=== PATIENT | female | born 1990 | race Caucasian/White ===

== ENCOUNTER 2017-08-11 03:48 | Emergency (ER) | payer OTHER ==
[2017-08-11] MEDS ORDERED: NORMAL SALINE 250 ML IV PRN (04:11)
[2017-08-11] MEDS ORDERED: MISOPROSTOL 0.2 MG TABLET PR ONE (04:13)
[2017-08-11 04:23] LABS: ABSOLUTE BASOPHILS # (AUTO) 0.1 10^3/uL (0.0-0.2); ABSOLUTE EOSINOPHILS # (AUTO) 0.7 10^3/uL (0.0-0.6); ABSOLUTE LYMPHOCYTES (AUTO) 3.5 10^3/uL (0.5-4.7); ABSOLUTE MONOCYTES (AUTO) 0.7 10^3/uL (0.1-1.4); ABSOLUTE NEUT (AUTO) 7.5 10^3/uL (1.7-8.2); BASOPHILS % (AUTO) 0.6 % (0-2); EOSINOPHILS % (AUTO) 5.3 % (0-6); HEMATOCRIT 42.7 % (36.0-47.0); HEMOGLOBIN 14.5 g/dL (12.0-15.5); LYMPHOCYTES % (AUTO) 28.1 % (13-45); MEAN CORPUSCULAR HGB CONC 33.9 g/dL (32.0-36.0); MEAN CORPUSCULAR VOLUME 86 fl (80-97); MONOCYTES % (AUTO) 5.8 % (3-13); PLATELET COUNT 554 10^3/uL (150-450); RED BLOOD COUNT 4.98 10^6/uL (3.72-5.28); RED CELL DISTRIBUTION WIDTH 12.8 % (11.5-14.0); SEGMENTED NEUTROPHILS % (AUTO) 60.2 % (42-78); TOTAL CELLS COUNTED % (AUTO) 100 %; WHITE BLOOD COUNT 12.5 10^3/uL (4.0-10.5)
[2017-08-11 04:27] LABS: ACETAMINOPHEN 38 ug/mL (10-30); ALANINE AMINOTRANSFERASE 56 U/L (9-52); ALBUMIN 4.7 g/dL (3.5-5.0); ALCOHOL 115 mg/dL (NONE DETECTED); ALKALINE PHOSPHATASE 88 U/L (38-126); ANION GAP 16 (5-19); ASPARTATE AMINO TRANSFERASE 47 U/L (14-36); BILIRUBIN,DIRECT 0.1 mg/dL (0.0-0.4); BILIRUBIN,TOTAL 0.2 mg/dL (0.2-1.3); BLOOD UREA NITROGEN 11 mg/dL (7-20); CALCIUM 9.9 mg/dL (8.4-10.2); CARBON DIOXIDE 22 mmol/L (22-30); CHLORIDE 103 mmol/L (98-107); GLUCOSE 144 mg/dL (75-110); POTASSIUM 4.5 mmol/L (3.6-5.0); SODIUM 141.3 mmol/L (137-145); TOTAL PROTEIN 7.4 g/dL (6.3-8.2)
[2017-08-11 04:28] LABS: SALICYLATE < 1.0 mg/dL (2.0-20.0)
--- NOTE | 2017-08-11 04:44 | ER Document Report ---
ED Psych Disorder / Suicide - General Mode of Arrival: Medic Information source: Patient, Transfer Record TRAVEL OUTSIDE OF THE [place] IN LAST 30 DAYS: No - HPI Patient complains to provider of: Overdose, Suicidal attempt Onset: Just prior to arrival Pain Level: Denies Suicide Risk Factors: Depressed, Lack of social support, No spouse, Prior suicide attempt, Other mental health dx. Suicide Attempt Method: Overdose Overdose of: Acetominophen, Alcohol, Anticholinergic Normal mood: No Associated symptoms: Depressed Similar symptoms previously: Yes Recently seen / treated by doctor: No <NINA ORTEGA - Last Filed: 08/11/17 07:52> <LILY COLUNGA - Last Filed: 08/11/17 13:16> - General Chief Complaint: Suicidal Ideation Stated Complaint: POSSIBLE OVERDOSE Time Seen by Provider: 08/11/17 04:02 Notes: Patient presents stating that she had a really bad day and she attempted to reach out to 10 people, none of who responded to her. Patient states that she feels very alone and does have typical financial stress. Patient states that she drank half a liter of [place] rum and then took Nucynta 50 mg 1 tablet, Martin 5/325 6-8 tablets,10 temazepam 100 mg tabs, 200 mg of Benadryl, Tylenol 10 tablets, Zofran 7 tabs of the 4 mg dose. Patient states she took all of this at 230 this morning. Patient states that she has a history of mental illness and treatment resistant depression. Patient also reports borderline personality disorder. Patient states she has had inpatient admissions to psychiatric facilities in the past. (NINA ORTEGA) - Related Data Allergies/Adverse Reactions: adhesive tape Allergy (Verified 08/11/17 08:37) morphine Allergy (Verified 08/11/17 08:37) Sulfa (Sulfonamide Antibiotics) Allergy (Verified 08/11/17 08:37) Past Medical History - General Information source: Patient - Social History Smoking Status: Current Every Day Smoker Frequency of alcohol use: Occasional Drug Abuse: None Occupation: None Lives with: Other - Daughter Family History: Reviewed & Not Pertinent Neurological Medical History: Reports: Hx Migraine Renal/ Medical History: Reports: Hx Ovarian Cysts Musculoskeltal Medical History: Reports Other - Ankylosing spondylosis, chronic hip and back pain Skin Medical History: Reports Hx Eczema Psychiatric Medical History: Reports: Hx Anxiety, Hx Borderline Personality Disorder, Hx Depression, Hx Post Traumatic Stress Disorder Past Surgical History: Reports: Hx Cholecystectomy, Hx Gynecologic Surgery - left fallopian tube removed - Immunizations Immunizations up to date: Yes Hx Diphtheria, Pertussis, Tetanus Vaccination: Yes <NINA ORTEGA - Last Filed: 08/11/17 07:52> Review of Systems - Review of Systems Constitutional: No symptoms reported. denies: Fever, Recent illness EENT: No symptoms reported Cardiovascular: No symptoms reported Respiratory: No symptoms reported Gastrointestinal: No symptoms reported. denies: Abdominal pain, Nausea, Vomiting Genitourinary: No symptoms reported Female Genitourinary: No symptoms reported Musculoskeletal: No symptoms reported Skin: No symptoms reported Hematologic/Lymphatic: No symptoms reported Neurological/Psychological: Suicidal ideation <SHANNON,KELLEANDRA - Last Filed: 08/11/17 07:52> Physical Exam - General General appearance: Appears well, Alert - HEENT Head: Normocephalic, Atraumatic Eyes: Normal Conjunctiva: Normal Nasal: Normal Mouth/Lips: Normal Mucous membranes: Normal Neck: Normal, Supple. No: Lymphadenopathy - Respiratory Respiratory status: No respiratory distress Chest status: Nontender Breath sounds: Normal. No: Rales, Rhonchi, Stridor, Wheezing Chest palpation: Normal - Cardiovascular Rhythm: Regular Heart sounds: S1 appreciated, S2 appreciated Murmur: No - Abdominal Inspection: Normal - Back Back: Tender - lumbar paraspinal tenderness - Extremities General upper extremity: Normal inspection, Normal ROM General lower extremity: Normal inspection, Normal ROM - Neurological Neuro grossly intact: Yes Orientation: AAOx4 Sreekanth Coma Scale Eye Opening: Spontaneous Sreekanth Coma Scale Verbal: Oriented [place] Coma Scale Motor: Obeys Commands [place] Coma Scale Total: 15 - Psychological Associated symptoms: Depressed - Skin Skin Temperature: Warm Skin Moisture: Dry Skin Color: Normal <SHANNON,KELSAVANAHAYDIN - Last Filed: 08/11/17 07:52> - Vital signs Vitals: Resp Pulse Ox 14 94 08/11/17 04:12 08/11/17 04:12 Course - Laboratory Result Diagrams: 08/11/17 03:30 08/11/17 03:30 <NINA ORTEGA - Last Filed: 08/11/17 07:52> - Laboratory Result Diagrams: 08/11/17 03:30 08/11/17 03:30 <LILY COLUNGA - Last Filed: 08/11/17 13:16> - Re-evaluation Re-evalutation: 08/11/17 04:41 Call placed to poison control, recommends monitoring patient for at least 6 hours. Does recommend repeating a acetaminophen level in 4 hours. This is watching for tachycardia, hypertension and agitation due to the Benadryl effects , advises monitoring for sedation after the Nucynta and Martin. Advises Narcan as needed and if Narcan is administered advised monitoring patient additional 4 hours post Narcan administration. 08/11/17 05:00 IVC hold paperwork completed and given to loan originator for notary. 08/11/17 06:00 pt hostile, refuses to change into gown. Dr Mccullough and security to bedside. Safe room initiated. 08/11/17 06:41 Patient yelling at staff. Patient with suicidal behavior and concern about elopement risk. Hard restraints ordered. 08/11/17 07:31 report and handoff given to Ke Kenney LOAN CLERK. Patient visibly more calm and is cooperative at this time, restraints removed. (NINA ORTEGA) - Vital Signs Vital signs: Temp Pulse Resp BP Pulse Ox 14 114/78 100 08/11/17 12:20 08/11/17 12:20 08/11/17 11:00 - Laboratory Laboratory results interpreted by me: 08/11/17 08/11/17 03:30 03:30 WBC 12.5 H Plt Count 554 H Absolute Eosinophils 0.7 H Glucose 144 H AST 47 H ALT 56 H Salicylates < 1.0 L Acetaminophen 38 H 08/11/17 07:54 Labs- Entire Visit 08/11/17 08/11/17 08/11/17 03:30 03:30 03:30 WBC 12.5 H RBC 4.98 Hgb 14.5 Hct 42.7 MCV 86 MCH 29.0 MCHC 33.9 RDW 12.8 Plt Count 554 H Seg Neutrophils % 60.2 Lymphocytes % 28.1 Monocytes % 5.8 Eosinophils % 5.3 Basophils % 0.6 Absolute Neutrophils 7.5 Absolute Lymphocytes 3.5 Absolute Monocytes 0.7 Absolute Eosinophils 0.7 H Absolute Basophils 0.1 Sodium 141.3 Potassium 4.5 Chloride 103 Carbon Dioxide 22 Anion Gap 16 BUN 11 Creatinine 0.69 Est GFR ( Amer) > 60 Est GFR (Non-Af Amer) > 60 Glucose 144 H Calcium 9.9 Total Bilirubin 0.2 Direct Bilirubin 0.1 Neonat Total Bilirubin Not Reportable Neonat Direct Bilirubin Not Reportable Neonat Indirect Bili Not Reportable AST 47 H ALT 56 H Alkaline Phosphatase 88 Total Protein 7.4 Albumin 4.7 Serum HCG, Qual NEGATIVE Urine Color Urine Appearance Urine pH Ur Specific [place] Urine Protein Urine Glucose (UA) Urine Ketones Urine Blood Urine Nitrite Urine Bilirubin Urine Urobilinogen Ur Leukocyte Esterase Urine WBC (Auto) Urine Bacteria (Auto) Squamous Epi Cells Auto Urine Mucus (Auto) Urine Ascorbic Acid Salicylates < 1.0 L Urine Opiates Screen Urine Methadone Screen Acetaminophen 38 H Ur Barbiturates Screen Ur Phencyclidine Scrn Ur Amphetamines Screen U Benzodiazepines Scrn Urine Cocaine Screen U Marijuana (THC) Screen Serum Alcohol 115 08/11/17 08/11/17 08/11/17 04:42 04:42 07:15 WBC RBC Hgb Hct MCV MCH MCHC RDW Plt Count Seg Neutrophils % Lymphocytes % Monocytes % Eosinophils % Basophils % Absolute Neutrophils Absolute Lymphocytes Absolute Monocytes Absolute Eosinophils Absolute Basophils Sodium Potassium Chloride Carbon Dioxide Anion Gap BUN Creatinine Est GFR ( Amer) Est GFR (Non-Af Amer) Glucose Calcium Total Bilirubin Direct Bilirubin Neonat Total Bilirubin Neonat Direct Bilirubin Neonat Indirect Bili AST ALT Alkaline Phosphatase Total Protein Albumin Serum HCG, Qual Urine Color COLORLESS Urine Appearance CLEAR Urine pH 6.0 Ur Specific [place] 1.002 Urine Protein NEGATIVE Urine Glucose (UA) NEGATIVE Urine Ketones NEGATIVE Urine Blood NEGATIVE Urine Nitrite NEGATIVE Urine Bilirubin NEGATIVE Urine Urobilinogen NEGATIVE Ur Leukocyte Esterase NEGATIVE Urine WBC (Auto) 0 Urine Bacteria (Auto) TRACE Squamous Epi Cells Auto <1 Urine Mucus (Auto) RARE Urine Ascorbic Acid NEGATIVE Salicylates Urine Opiates Screen UNCONFIRMED POSITIVE Urine Methadone Screen NEGATIVE Acetaminophen 10 Ur Barbiturates Screen NEGATIVE Ur Phencyclidine Scrn NEGATIVE Ur Amphetamines Screen NEGATIVE U Benzodiazepines Scrn NEGATIVE Urine Cocaine Screen NEGATIVE U Marijuana (THC) Screen NEGATIVE Serum Alcohol (NINA ORTEGA) Discharge <NINA ORTEGA - Last Filed: 08/11/17 07:52> <LILY COLUNGA - Last Filed: 08/11/17 13:16> - Discharge Clinical Impression: Borderline personality disorder, PTSD (post-traumatic stress disorder) Overdose Qualifiers: Encounter type: initial encounter Injury intent: intentional self-harm Qualified Code(s): T50.902A - Poisoning by unspecified drugs, medicaments and biological substances, intentional self-harm, initial encounter Depression Qualifiers: Depression Type: major depressive disorder Major depression recurrence: recurrent Active/Remission status: currently active Major depression episode severity: severe Psychotic features: without psychotic features Qualified Code(s ): F33.2 - Major depressive disorder, recurrent severe without psychotic features Condition: Stable Disposition: HOME, SELF-CARE Additional Instructions: DEPRESSION: Your evaluation reveals that you have mental depression. While symptoms may be vague, they often include disturbance of sleep, fatigue, loss of appetite , and general loss of interest in life. While depression may be a side effect of drugs, or a reaction to a major change in your life, many cases have no known cause. If depression is acute, and related to a major loss in your life, you can expect it to clear completely with time. If you have been depressed a long time , are prone to repeated bouts of depression or low mood, or have been thinking of suicide, get help. Depression can be treated with anti-depressant medication and counselling. Long-term depression will often take a few weeks to clear, even with appropriate medication. Follow-up care is important. SUICIDAL IDEATION: Suicidal ideation is a common medical term for thoughts about suicide, which may be as detailed as a formulated plan, without the suicidal act itself. Although most people who undergo suicidal ideation do not commit suicide, some go on to make suicide attempts. The range of suicidal ideation varies greatly from fleeting to detailed planning, role playing, and unsuccessful attempts. While thoughts about suicide are common, most people do not carry out serious actions to commit suicide. Based upon your evaluation and discussion with you, we do not believe you are currently at risk to act upon your thoughts of suicide. You have agreed to return to the Emergency Department, at any time , if you feel inclined to act upon your suicidal thoughts. FOLLOW-UP CARE: [facility]. You also have an appointment with [facility] on 08/22/2017. Mobile crisis will continue to follow her case and will assist in helping obtain all mental health services you need. If you experience worsening or a significant change in your symptoms, notify the physician immediately or return to the Emergency Department at any time for re-evaluation. Referrals: [facility] [Provider Group] - 08/14/17 3:00 pm [facility] [Outside] - 08/22/17 [facility] [Outside] - Follow up as needed
[2017-08-11 05:03] LABS: APPEARANCE,URINE CLEAR; BILIRUBIN,URINE NEGATIVE (NEGATIVE); COLOR,URINE COLORLESS; GLUCOSE, URINE NEGATIVE (NEGATIVE); KETONES,URINE NEGATIVE (NEGATIVE); LEUKOCYTE ESTERASE,URINE NEGATIVE (NEGATIVE); NITRITE,URINE NEGATIVE (NEGATIVE); PROTEIN,URINE NEGATIVE (NEGATIVE); URINE SPECIFIC GRAVITY 1.002; UROBILINOGEN,URINE NEGATIVE mg/dL (<2.0)
[2017-08-11 05:21] LABS: URINE AMPHETAMINES SCREEN NEGATIVE; URINE BARBITURATES SCREEN NEGATIVE; URINE BENZODIAZEPINES SCREEN NEGATIVE; URINE COCAINE SCREEN NEGATIVE; URINE MARIJUANA (THC) SCREEN NEGATIVE; URINE METHADONE SCREEN NEGATIVE; URINE PHENCYCLIDINE SCREEN NEGATIVE
--- NOTE | 2017-08-11 07:51 | EKG REPORT ---
SEVERITY:- NORMAL ECG - SINUS RHYTHM : Confirmed by: Ludwin Blackwood MD 11-Aug-2017 07:51:20
--- NOTE | 2017-08-11 09:06 | ER Document Report ---
Doctor's Note Notes: 08/11/17 10:18 Patient was seen during this morning psychiatric rounds along with behavioral health team. Patient came last night for evaluation voluntarily. Patient has history of depression and took medications stated above. Patient felt that her depression was getting worse and she did not have any support at that time. Patient had elevated liver enzymes as well as slightly elevated Tylenol level. Repeat Tylenol level was undetectable. No concern for liver toxicity or Tylenol toxicity. Patient feels better this morning, she denies any suicidal or homicidal ideations. She feels regretful what she did last night. Patient is willing to continue her life and take care of her daughter. Patient is agreeable to obtain outpatient resources for treatment of her depression as well as possible borderline personality disorder. Otherwise patient is clinically stable. Cooperative and appears to be in good spirits. Plan is to contact the [facility] and make sure that patient is not flagged and does not have any other significant risk factors. Patient is medically cleared at present time. Disposition per behavioral health. 08/11/17 13:49 Patient was able to establish follow[facility]up [facility] for further therapy and treatment with help of behavioral health team Patient also has a follow-up with psych services on 22 August Patient has been very cooperative as well as pleasant, no more suicidal homicidal ideations, she feels hopeful and optimistic
--- NOTE | 2017-08-11 12:43 | PSYCHOLOGICAL NOTE ---
Psych Note - Psych Note Psych Note: Reason for Consult: Suicidal ideation; IVC Consent permissions: [facility] emergency worker Patient presents stating that she had a really bad day and she attempted to reach out to 10 people, none of who responded to her. Patient states that she feels very alone and does have typical financial stress. Patient states that she drank half a liter of [place] rum and then took Nucynta 50 mg 1 tablet, [place] 5/325 6-8 tablets,10 temazepam 100 mg tabs, 200 mg of Benadryl, Tylenol 10 tablets, Zofran 7 tabs of the 4 mg dose. Patient states she took all of this at 230 this morning. Patient states that she has a history of mental illness and treatment resistant depression. Patient also reports borderline personality disorder. Patient disclosed that "I was having a bad day and took too much medication.... Yes I wanted to kill myself... But I talk to someone... I was feeling better...I just wanted to talk to someone." She reports that she called the veterans crisis which contacted the [facility] crisis which contacted EMS and police. She states that when she spoke to the mobile emergency worker she agreed to come to [facility] ED to make sure that she did not take a "toxic amount" of medications. She states that she does not want to and for the first time " I thought they (mobile emergency worker) wanted to help me not just tell me what to do." She continued to report she has diagnosis of major depression, PTSD, anxiety, borderline personality disorder. She reports that she [facility] not [facility]. she continued to disclose that she has difficulty finding providers that will help her because of her diagnosis of being borderline. She disclosed that she has been on almost every single antidepressant with no improvement and confirms she has had both CBT and DBT. She reports that she even has attended a 6 weeks trauma focused therapy in [place] at [facility] and has multiple books at home such as [employer]. Patient is tearful and states that she just needs more support emotionally than she is receiving currently. Clinician spoke with [employer] mobile emergency worker, who disclosed the patient has limited financial support. She reports concern that the more she discussed with the patient the patient "slowly disclosed" taking more of her medication than what she initially reported. Patient has chronic suicidal ideation and reported last night that she "does not want to but just wants the shit to end." The patient also had stated that she her plan originally was to continue taking her medication and drinking until her daughter got on the bus at which point she would "end it." Patient reported to her that her depression is crippling and wants to get help but just cannot get up and out of bed some days. [facility], patient is not considered a suicide risk per records. Behavioral Health Team recommendations will be faxed to [place]. Behavior health team contacted CPS to make reports. Patient is the only caregiver of 10-year-old daughter at which time she was attempting suicide and under the influence. Patient is alert and orientated to person, place, time and circumstance. Mood is dysphoric with tearful affect however openly engages with clinician. Patient denies current suicidal ideation but confirms suicidal ideation with gesture last night. Patient denies homicidal ideation. Delusions are absent behaviors congruent with intact reality based presentation i.e. organized, linear, rational thinking. Conversational speech was within normal rate, tone and prosody. Intellectual abilities appear to be within the average range. Eye contact was well-maintained. Attention and concentration are good. Insight , judgment, impulse control are fair. No medication recommendations at this time Diagnosis 296.33 (F33.2) major depressive disorder recurrent severe per history provided by patient 309.81 (F43.10) post traumatic stress disorder per history provided by patient 300.00 (F41.9) unspecified anxiety disorder per history provided by patient 301.83 (F60.3) borderline personality disorder per history provided by patient Impression\\plan: Patient is considered cleared from acute psychiatric services. Patient no longer meets IVC criteria per [place] GS 122C. Patient discloses suicidal ideation with gestures while under the influence of alcohol. Patient does have a diagnosis of borderline personality disorder which is congruent with patient's disclosure of needing more assistance, feeling bonded to the mobile emergency worker and her "slowly disclosing" taking more medication then originally stated during her evaluation with mobile emergency worker. Patient states she has gone through multiple trauma focused therapies in addition to CBT and DBT. Patient discloses that no medications help with her depression which also congruent with personality disorder. The most appropriate treatment for this patient is therapeutic treatment; inpatient psychiatric treatment to stabilize her on medications would be not be effective in addressing her symptoms. Patient may benefit from HEALTHCARE PROF or an ACT team to help navigate daily living with weekly visits. [facility] at 3pm. Patient will be [facility] 08/22/2017 intake. Mobile Crisis will be continue following patient until patient is with a secure link for continued mental health services. Dr. Mcclure was consulted on the care and management of the patient; attending physician is in agreement with recommendations and disposition.
[2017-08-11 13:52] VITALS: BP 124/77
== END 2017-08-11 14:00 | disposition home or self-care (01) ==
LOC: ER 03:48
DX: T50.992A Poisoning by other drugs, medicaments and biological substances, intentional self-harm, initial encounter (principal); F60.3 Borderline personality disorder; F43.10 Post-traumatic stress disorder, unspecified; F33.2 Major depressive disorder, recurrent severe without psychotic features; Y92.9 Unspecified place or not applicable
CPT/HCPCS: 36415; 80053; 80307; 81001; 84703; 85025; 93005; 93010; 99285